=== PATIENT | male | born 1960 ===

== ENCOUNTER 2018-02-25 15:41 | Observation (INO) | payer MEDICAID ==
--- NOTE | 2018-02-25 17:06 | ED PDOC ---
Arrival/HPI - General EM Caveat: Altered Mental Status - History of Present Illness Symptom Onset: Other (unknown) Symptom Course: Unchanged Activities at Onset: Other (brought in by EMS) Context: Street <Phan Yoo - Last Filed: 02/25/18 17:07> - General Historian: EMS <Adriane Booker - Last Filed: 02/25/18 19:45> - General Chief Complaint: Altered Mental Status Time Seen by Provider: 02/25/18 16:05 - History of Present Illness Narrative History of Present Illness (Text): 02/25/18 17:03 Patient is a 57 year old male with unknown PMH who presented to ED via EMS for AMS. Per EMS, he was walking along the highway and appeared confused, out of breath, and overheated. He asked them to take him back to the [place]. On our exam, he stated that he was in [place] and knew who the president was. Otherwise he is disoriented and confused. (Phan Yoo) Past Medical History - Provider Review Nursing Documentation Reviewed: Yes - Past History Past History: Unable to Obtain - Infectious Disease Hx of Infectious Diseases: None - Psychiatric Hx Substance Use: No (Unknown) <Phan Yoo - Last Filed: 02/25/18 17:07> Family/Social History - Physician Review Nursing Documentation Reviewed: Yes Family/Social History: Unknown Family HX Smoking Status: Unknown If Ever Smoked Hx Alcohol Use: No (Unknown) Hx Substance Use: No (Unknown) <Phan Yoo - Last Filed: 02/25/18 17:07> Allergies/Home Meds <Phan Yoo - Last Filed: 02/25/18 17:07> <Adriane Booker - Last Filed: 02/25/18 19:45> Allergies/Adverse Reactions: Allergies Unobtainable Allergy (Verified 02/25/18 16:48) Home Medications: Home Meds Medication Instructions Recorded Confirmed Unobtainable 02/25/18 02/25/18 Review of Systems - Review of Systems Systems not reviewed;Unavailable: Altered Mental Status <Phan Yoo - Last Filed: 02/25/18 17:07> Physical Exam Vital Signs Reviewed: Yes Temperature: Afebrile Blood Pressure: Normal Pulse: Regular Respiratory Rate: Normal Appearance: Positive for: Non-Toxic Pain Distress: None Mental Status: Positive for: Confused Finger Stick Blood Glucose: 112 - Systems Exam Head: Present: Atraumatic, Normocephalic Pupils: Present: PERRL Extroacular Muscles: Present: EOMI Mouth: Present: Dry Pharnyx: Present: Normal. No: ERYTHEMA, EXUDATE Neck: Present: Normal Range of Motion. No: JVD Respiratory/Chest: Present: Clear to Auscultation. No: Wheezes, Rales, Rhonchi Cardiovascular: Present: Regular Rate and Rhythm. No: Murmurs, Rub, Gallop Abdomen: No: Tenderness, Rebound, Guarding Back: Present: Normal Inspection Upper Extremity: Present: Normal Inspection. No: Cyanosis, Edema Lower Extremity: Present: Normal Inspection. No: Edema Neurological: Present: CN II-XII Intact, Motor Func Grossly Intact, Normal Sensory Function Skin: Present: Hot. No: Rashes Psychiatric: Present: Alert <Phan Yoo - Last Filed: 02/25/18 17:07> Vital Signs Temp Pulse Resp BP Pulse Ox 02/25/18 18:00 98.6 F 76 18 145/78 98 02/25/18 16:58 99.2 F 84 16 139/76 99 Medical Decision Making <Phan Yoo - Last Filed: 02/25/18 17:07> - Lab Interpretations I have reviewed the lab results: Yes - RAD Interpretation Customer Services Manager: ED Physician, Radiologist - EKG Interpretation Interpreted by ED Physician: Yes Type: 12 lead EKG <Adriane Booker - Last Filed: 02/25/18 19:45> ED Course and Treatment: 02/25/18 17:10 -Patient confused on exam and not oriented to person, time, place, or situation -CT head, CBC, CMP, UDS, UA, Blood and urine cx's, ammonia levels (Phan Yoo) 02/25/18 Patient Seen With Resident: In agreement with resident note which contains more details about the patient. Patient was seen and evaluated with resident. Came up with plan and treatment together. EKS shows NSR at [address] changes and QTC 475. Interpreted by me. 02/25/18 19:05 Based on the fact that patient appears altered and stated he was from [place]. Called [place] [employer] to alert them that patient is at [facility] in case family reach out to the police. 02/25/18 19:07 Chest X-ray shows no acute processes. Interpreted by me. 02/25/18 19:11 CT Head Without Intravenous Contrast: FINDINGS: Brain: Diffuse cerebral volume loss and chronic microvascular white matter changes. Ventricles: Unremarkable. Bones/joints: Unremarkable. No acute fracture. Soft tissues: Unremarkable. Sinuses: Unremarkable as visualized. Mastoid air cells: Unremarkable as visualized. IMPRESSION: No acute intracranial pathology or traumatic injury. Diffuse cerebral volume loss and chronic microvascular white matter changes. 02/25/18 19:43 Labs WNL. Workup was negative but patient continues to be disoriented. No family can be reached and phone numbers are not functioning. Will need observation for SW evaluation. Accepted by Owen. Resident at baseline 02/25/18 19:45 (Adriane Booker) - Lab Interpretations Lab Results: 02/25/18 17:00 02/25/18 17:00 Lab Results 02/25/18 18:20: Urine Color Yellow, Urine Appearance Clear, Urine pH 5.5, Ur Specific [place] >= 1.030, Urine Protein Trace H, Urine Glucose (UA) Negative, Urine Ketones 15 H, Urine Blood Negative, Urine Nitrate Negative, Urine Bilirubin Small H, Urine Urobilinogen 0.2, Ur Leukocyte Esterase Negative, Urine RBC Negative, Urine WBC 1 - 3, Ur Epithelial Cells 1 - 3, Urine Bacteria Few 02/25/18 17:00: Alcohol, Quantitative < 10 02/25/18 17:00: Sodium 147, Potassium 3.3 L, Chloride 109 H, Carbon Dioxide 24, Anion Gap 17, BUN 24 H, Creatinine 0.8, Est GFR ( Amer) > 60, Est GFR ( Non-Af Amer) > 60, Random Glucose 112 H, Calcium 9.2, Phosphorus 3.4, Magnesium 2.1, Total Bilirubin 0.8, AST 42, ALT 37, Alkaline Phosphatase 73, Total Protein 7.7, Albumin 4.3, Globulin 3.4, Albumin/Globulin Ratio 1.3 02/25/18 17:00: WBC 6.0, RBC 4.34, Hgb 13.2 L, Hct 38.6 L, MCV 88.9, MCH 30.4, MCHC 34.2, RDW 14.0, Plt Count 212, MPV 9.4, Gran % 65.5, Lymph % (Auto) 24.7, [place] % (Auto) 8.6 H, Eos % (Auto) 1.0 L, Baso % (Auto) 0.2, Gran # 3.96, Lymph # (Auto) 1.5, [place] # (Auto) 0.5, Eos # (Auto) 0.1, Baso # (Auto) 0.01 02/25/18 16:57: POC Glucose (mg/dL) 112 H 02/25/18 16:01: POC Glucose (mg/dL) 108 - RAD Interpretation Radiology Orders: 02/25/18 17:02 HEAD W/O CONTRAST [CT] Stat 02/25/18 17:15 CHEST ONE VIEW [RAD] Stat <Phan Yoo - Last Filed: 02/25/18 17:07> - Scribe Statement The provider has reviewed the documentation as recorded by the Scribe <Adriane Booker - Last Filed: 02/25/18 19:45> - Scribe Statement Zane Prather Provider Scribe Attestation: All medical record entries made by the Scribe were at my direction and personally dictated by me. I have reviewed the chart and agree that the record accurately reflects my personal performance of the history, physical exam, medical decision making, and the department course for this patient. I have also personally directed, reviewed, and agree with the discharge instructions and disposition. (Adriane Booker) Disposition/Present on Arrival - Present on Arrival History of DVT/PE: No History of Uncontrolled Diabetes: No Urinary Catheter: No History of Decub. Ulcer: No History Surgical Site Infection Following: None <Phan Yoo - Last Filed: 02/25/18 17:07> - Present on Arrival Any Indicators Present on Arrival: No - Disposition Have Diagnosis and Disposition been Completed?: Yes Disposition Time: 19:44 Patient Plan: Observation <Adriane Booker - Last Filed: 02/25/18 19:45> - Disposition Diagnosis: Dementia, Disoriented Disposition: HOSPITALIZED Condition: FAIR Referrals: PCP,NO [Primary Care Provider] - Follow up with primary Forms: [employer] (Slovenian)
[2018-02-25 17:57] LABS: BASO # 0.01 K/mm3 (0.0-2.0); BASO % 0.2 % (0.0-3.0); EOS # 0.1 (0.0-0.7); GRAN # 3.96 (1.4-6.5); GRAN % 65.5 % (50.0-68.0); HEMOGLOBIN 13.2 g/dL (14.0-18.0); LYMPH # 1.5 (1.2-3.4); LYMPH % 24.7 % (22.0-35.0); MEAN CELL VOLUME 88.9 fl (80.0-105.0); MEAN CORPUSCULAR HEMOGLOBIN 30.4 pg (25.0-35.0); MEAN CORPUSCULAR HGB CONC 34.2 g/dl (31.0-37.0); MEAN PLATELET VOLUME 9.4 fl (7.0-11.0); MONO # 0.5 (0.1-0.6); MONO % 8.6 % (1.0-6.0); RBC 4.34 10^6/uL (3.5-6.1)
[2018-02-25 18:04] LABS: ALB/GLOB RATIO 1.3 (1.1-1.8); ALBUMIN 4.3 g/dL (3.0-4.8); ALT/SGPT 37 U/L (7-56); AST/SGOT 42 U/L (17-59); BLOOD UREA NITROGEN 24 mg/dL (7-21); CALCIUM 9.2 mg/dL (8.4-10.5); GFR AFRICAN-AMERICAN > 60; GFR NON-AFRICAN AMERICAN > 60
[2018-02-25 18:42] LABS: PH,URINE 5.5 (4.7-8.0); URINE BILIRUBIN SMALL (NEGATIVE); URINE BLOOD NEGATIVE (NEGATIVE); URINE GLUCOSE (UA) NEGATIVE (NEGATIVE); URINE LEUKOCYTE ESTERASE NEGATIVE Leu/uL (NEGATIVE); URINE PROTEIN TRACE mg/dL (<30 mg/dL); URINE UROBILINOGEN 0.2 E.U./dL (<1 E.U./dL)
[2018-02-25 18:43] LABS: URINE APPEARANCE CLEAR (CLEAR); URINE COLOR YELLOW (YELLOW)
[2018-02-25 19:10] LABS: URINE BACTERIA FEW (NEG); URINE RBC NEGATIVE /hpf (0-2)
[2018-02-25] MEDS ORDERED: Multivitamin (MVI) 10 ML, Thiamine 100 MG, Folic Acid 1 MG in Sodium Chloride 0.9% 1,00... IV ONE (21:01)
[2018-02-25] MEDS ORDERED: Potassium Chloride 20 mEq ER Tab PO STA (22:34)
--- NOTE | 2018-02-25 23:43 | CP.PCM.HP ---
<AramSai - Last Filed: 02/25/18 23:25> History of Present Illness - History of Present Illness History of Present Illness: Internal Medicine H&P CC: Dementia HPI: Mr. Eliel Cai is a 57 year old man with a past medical history significant for dementia and prior significant alcohol abuse who presented after being found by police wandering the streets of [facility]. Patient is only alert to self and disoriented to place, time and event. Per patients family at bedside, patient lives alone in [place] and was last seen yesterday evening when he was reportedly going back to his home. Patients family filed missing persons report with [facility] this morning. It is also reported that the patient is no longer able to live alone and they are concerned for his safety. Patient has no complaints at this time including fevers, chills, headache, chest pain, SOB, abdominal pain, N/V/D/C, changes in urine output, skin changes or any numbness/tingling/weakness of any extremity. PMH: As stated above PSH: As stated above Family History: Denies Social History: Previous tobacco use (unknown quantity), previous significant alcohol abuse and denies illicit drug abuse Allergies: NKDA Home Medications: As per MAR Present on Admission - Present on Admission Any Indicators Present on Admission: No Review of Systems - Review of Systems Review of Systems: As stated in HPI, otherwise negative Past Patient History - Infectious Disease Hx of Infectious Diseases: None - Past Social History Smoking Status: Unknown If Ever Smoked - PSYCHIATRIC Hx Substance Use: No (Unknown) - SURGICAL HISTORY Hx Surgeries: No (Unknown) Meds Allergies/Adverse Reactions: Allergies Allergy/AdvReac Type Severity Reaction Status Date / Time Unobtainable Allergy Verified 02/25/18 16:48 Physical Exam - Constitutional Appears: Non-toxic, No Acute Distress - Head Exam Head Exam: ATRAUMATIC, NORMOCEPHALIC - Eye Exam Eye Exam: EOMI, Normal appearance - ENT Exam ENT Exam: Mucous Membranes Moist, Normal Exam - Neck Exam Neck exam: Positive for: Full Rom, Normal Inspection. Negative for: Lymphadenopathy, Tenderness - Respiratory Exam Respiratory Exam: Clear to Auscultation Bilateral, NORMAL BREATHING PATTERN. absent: Accessory Muscle Use, Chest Wall Tenderness, Decreased Breath Sounds, Prolonged Expiratory Phase, Rales, Rhonchi, Wheezes, Respiratory Distress, Stridor - Cardiovascular Exam Cardiovascular Exam: REGULAR RHYTHM, RRR, +S1, +S2. absent: Bradycardia, Tachycardia, Clicks, Diastolic murmur, Gallop, Irregular Rhythm, JVD, Rubs, +S4 , Systolic Murmur - GI/Abdominal Exam GI & Abdominal Exam: Normal Bowel Sounds, Soft. absent: Tenderness - Extremities Exam Extremities exam: Positive for: full ROM, normal capillary refill, normal inspection, pedal pulses present. Negative for: calf tenderness, joint swelling , pedal edema, tenderness - Back Exam Back exam: FULL ROM, NORMAL INSPECTION. absent: CVA tenderness (L), CVA tenderness (R) - Neurological Exam Neurological exam: Alert, CN II-XII Intact, Normal Gait - Psychiatric Exam Psychiatric exam: Normal Affect, Normal Mood - Skin Skin Exam: Dry, Intact, Normal Color, Warm Results - Vital Signs Recent Vital Signs: Last Vital Signs Temp 98.6 F 02/25/18 18:00 Pulse 71 02/25/18 20:55 Resp 17 02/25/18 20:55 BP 131/71 02/25/18 20:55 Pulse Ox 100 02/25/18 20:55 - Labs Result Diagrams: 02/25/18 17:00 02/25/18 17:00 Labs: Laboratory Results - last 24 hr 02/25/18 21:38 Ammonia 14 Assessment & Plan - Assessment and Plan (Free Text) Assessment: 57 year old man with a past medical history significant for dementia and prior significant alcohol abuse who presented after being found by police wandering the streets of [facility]. Patient is only alert to self and disoriented to place, time and event. Per patients family at bedside, patient lives alone in [place] and was last seen yesterday evening when he was reportedly going back to his home. Patients family filed missing persons report with [place] PD this morning. It is also reported that the patient is no longer able to live alone and they are concerned for his safety. Plan: 1. Dementia -CT Head negative for any acute intracranial abnormalities -Chest X-Ray showed no active disease -EKG showed NSR without any ST/T segment changes -Alcohol negative and UDS pending -UA without signs of UTI -HDS/VSS -Patient refused IV Banana Bag -Daily Folic Acid and Thiamine -Psych, Social Work, PT/OT consulted, all recommendations appreciated 2. Hypokalemia -Potassium at 3.3 -Replenished with 40meq of Potassium Chloride solution -Will monitor with AM CMP GI Prophylaxis: Protonix DVT Prophylaxis: SCD's Diet: Heart Healthy Patient seen and case discussed with attending, Dr. Ghulam Peñaloza PGY2 - Date & Time Date: 02/25/18 Time: 23:44 <Ghulam Eaton N - Last Filed: 02/26/18 00:10> Results - Vital Signs Recent Vital Signs: Last Vital Signs Temp 98.6 F 02/25/18 18:00 Pulse 71 02/25/18 20:55 Resp 17 02/25/18 20:55 BP 131/71 02/25/18 20:55 Pulse Ox 100 02/25/18 20:55 - Labs Result Diagrams: 02/25/18 17:00 02/25/18 17:00 Labs: Laboratory Results - last 24 hr 02/25/18 21:38 Ammonia 14 Addendum Addendum: 02/26/18 00:05 57 yrs old male unable to communicate due to cognitive impairment was brought to er for wandering in the street. family arived later , as per family pt was dx ed with dementia 2 months back in [facility]. but wer having symptoms of disorientation off and on x1 yr. he lives in a rented room in some house .but now he is unable to live by himself.
[2018-02-26 01:10] LABS: T4 6.5 ug/dL (5.5-11.0)
[2018-02-26] MEDS ORDERED: Potassium Chloride 20 mEq ER Tab PO STA (05:13)
[2018-02-26] MEDS: Pantoprazole 40 mg EC Tab PO SCH (05:25)
[2018-02-26 06:53] LABS: BASO # 0.03 K/mm3 (0.0-2.0); BASO % 0.6 % (0.0-3.0); EOS # 0.3 (0.0-0.7); GRAN # 2.27 (1.4-6.5); GRAN % 45.6 % (50.0-68.0); LYMPH % 39.4 % (22.0-35.0); MEAN CELL VOLUME 88.7 fl (80.0-105.0); MEAN CORPUSCULAR HGB CONC 33.8 g/dl (31.0-37.0); MEAN PLATELET VOLUME 9.4 fl (7.0-11.0); MONO # 0.5 (0.1-0.6); MONO % 9.4 % (1.0-6.0); RBC 4.34 10^6/uL (3.5-6.1)
[2018-02-26 07:17] LABS: ALB/GLOB RATIO 1.3 (1.1-1.8); ALT/SGPT 28 U/L (7-56); AST/SGOT 38 U/L (17-59); BLOOD UREA NITROGEN 21 mg/dL (7-21); CALCIUM 9.1 mg/dL (8.4-10.5); GFR AFRICAN-AMERICAN > 60; GFR NON-AFRICAN AMERICAN > 60
--- NOTE | 2018-02-26 07:35 | CT ---
Date of service: 02/25/2018 PROCEDURE: CT HEAD WITHOUT CONTRAST. HISTORY: AMS COMPARISON: None available. TECHNIQUE: Axial computed tomography images were obtained through the head/brain without intravenous contrast. Radiation dose: Total exam DLP = 824 mGy-cm. This CT exam was performed using one or more of the following dose reduction techniques: Automated exposure control, adjustment of the mA and/or kV according to patient size, and/or use of iterative reconstruction technique. FINDINGS: HEMORRHAGE: No intracranial hemorrhage. BRAIN: No mass effect or edema. Severe diffuse microvascular changes in the periventricular and deep white matter VENTRICLES: Unremarkable. No hydrocephalus. CALVARIUM: Unremarkable. PARANASAL SINUSES: Unremarkable as visualized. No significant inflammatory changes. MASTOID AIR CELLS: Unremarkable as visualized. No inflammatory changes. OTHER FINDINGS: The report concurs with the preliminary [facility] report IMPRESSION: No acute intracranial findings. Severe chronic microvascular changes
[2018-02-26 07:53] VITALS: O2SAT 98
--- NOTE | 2018-02-26 08:19 | RAD ---
Date of service: 02/25/2018 PROCEDURE: CHEST RADIOGRAPH, 1 VIEW HISTORY: altered COMPARISON: None available. FINDINGS: LUNGS: The lungs are well inflated and clear. PLEURA: No pneumothorax or pleural fluid seen. CARDIOVASCULAR: Normal. OSSEOUS STRUCTURES: No significant abnormalities. VISUALIZED UPPER ABDOMEN: Normal. OTHER FINDINGS: None. IMPRESSION: No active pulmonary disease.
--- NOTE | 2018-02-26 14:33 | CP.PCM.PN ---
<Mar Heaton - Last Filed: 02/26/18 14:29> Subjective - Date & Time of Evaluation Date of Evaluation: 02/26/18 Time of Evaluation: 14:29 - Subjective Subjective: Mar Heaton PGY1 Progress Note for Dr. Meyer Mr. Julian was examined at bedside this morning. He has no complaints today. He does not know why he is here, or where he is. He is not able to report any medical history. He denies dizziness, headache, shortness of breath, chest pain , abdominal pain, nausea, vomiting, or diarrhea. Patient's family arrived today. They reported that he lives in a house with his brother, who is currently in the [place]. His sister in law is not able to care for him at this time. They report previous admissions at [facility] His sister was also present who reports she is too sick to take care of him. Objective - Vital Signs/Intake and Output Vital Signs (last 24 hours): Temp Pulse Resp BP Pulse Ox 98 F 67 18 108/68 98 02/26/18 06:00 02/26/18 06:00 02/26/18 06:00 02/26/18 06:00 02/26/18 06:00 - Medications Medications: Current Medications Folic Acid (Folic Acid) 1 mg PO DAILY [facility] Last Admin: 02/26/18 10:02 Dose: 1 mg Multivitamins/Minerals (Therapeutic-M Tab) 1 tab PO 0800 [facility] Pantoprazole Sodium (Protonix Ec Tab) 40 mg PO 0600 [facility] Last Admin: 02/26/18 05:25 Dose: 40 mg Thiamine HCl (Vitamin B1 Tab) 100 mg PO BID [facility] - Labs Labs: 02/26/18 06:10 02/26/18 06:10 - Constitutional Appears: Well, No Acute Distress - Head Exam Head Exam: ATRAUMATIC, NORMOCEPHALIC - Eye Exam Eye Exam: Normal appearance, PERRL - ENT Exam ENT Exam: Mucous Membranes Moist - Respiratory Exam Respiratory Exam: Clear to Ausculation Bilateral, NORMAL BREATHING PATTERN - Cardiovascular Exam Cardiovascular Exam: REGULAR RHYTHM, +S1, +S2 - GI/Abdominal Exam GI & Abdominal Exam: Soft, Normal Bowel Sounds. absent: Distended, Tenderness - Extremities Exam Extremities Exam: Normal Inspection. absent: Pedal Edema, Tenderness - Back Exam Back Exam: NORMAL INSPECTION - Neurological Exam Neurological Exam: Alert, Awake Additional comments: oriented to person, does not know year, president, facility, or city. - Psychiatric Exam Psychiatric exam: Normal Affect, Normal Mood - Skin Skin Exam: Normal Color Assessment and Plan - Assessment and Plan (Free Text) Assessment: 57 year old man with a past medical history significant for dementia and prior significant alcohol abuse who presented after being found by police wandering the streets of [facility], admitted for dementia. Plan: Dementia - likely secondary to chronic alcohol use - CT Head negative for any acute intracranial abnormalities - Chest X-Ray showed no active disease - EKG showed NSR without any ST/T segment changes - Alcohol negative and UDS pending - UA without signs of UTI - vital signs stable - Daily Folic Acid and multivitamin - Thiamine BID - Psych, Social Work, PT/OT consulted, all recommendations appreciated - spoke with family, they are not able to bring him home at this time Hypokalemia - Potassium at 3.8 today, resolved - 3.3 yesterday, replenished with 40meq of Potassium Chloride solution - Will monitor with AM CMP GI Prophylaxis: Protonix DVT Prophylaxis: SCD's Diet: Heart Healthy Patient seen and case discussed with attending, Dr. Meyer <Pradeep Meyer - Last Filed: 02/28/18 11:50> Objective - Vital Signs/Intake and Output Vital Signs (last 24 hours): Temp Pulse Resp BP Pulse Ox 97.8 F 69 20 129/83 98 02/27/18 14:00 02/27/18 14:00 02/27/18 14:00 02/27/18 14:00 02/27/18 14:00 - Labs Labs: 02/26/18 06:10 02/26/18 06:10 PT 12.5 SECONDS (9.4-12.5) 02/27/18 11:35 INR 1.09 02/27/18 11:35 Attending/Attestation - Attestation I have personally seen and examined this patient.: Yes I have fully participated in the care of the patient.: Yes I have reviewed all pertinent clinical information, including history, physical exam and plan: Yes Notes (Text): 02/28/18 11:49 Attending note; Patient seen and examined with resident. Patient is a 57 year old man with a past medical history significant for dementia and prior significant alcohol abuse who presented after being found by police wandering the streets of [facility], admitted for dementia. Patient is currently alert and awake. Oriented to place. knows date of . Recognizes his family members. Otherwise memory is poor. No acute medical issues. Psychiatric evaluation requested for occasional agitation. Get neurology evaluation. Case discussed with upper caser/social insurance administrator in detail for discharge planning. Possible discharge tomorrow. Upon discharge the patient will be referred to [facility] clinic.
--- NOTE | 2018-02-26 15:13 | CARD ---
APPROVED REPORT Date of service: 02/25/2018 EKG Measurement Heart [id number] <Conclusion> Normal sinus rhythm Nonspecific T wave abnormality Prolonged QT Abnormal ECG
[2018-02-27] MEDS: Pantoprazole 40 mg EC Tab PO SCH (05:30)
[2018-02-27 07:57] LABS: BARBITURATES, UR NEGATIVE (NEGATIVE); BENZODIAZEPINES, UR NEGATIVE (NEGATIVE); OPIATES, UR NEGATIVE (NEGATIVE); PHENCYCLIDINE, UR NEGATIVE (NEGATIVE)
[2018-02-27] MEDS ORDERED: Multivitamin With Minerals Tab PO SCH (08:00)
--- NOTE | 2018-02-27 08:14 | CON ---
Copied To: Jennifer Neal MD Attending MD: Jennifer Neal MD DATE: 02/26/2018 HISTORY OF PRESENT ILLNESS: The patient is a 57-year-old Croatian male with a history of dementia and prior alcohol abuse, who was brought in by family as they have concerns about the patient cannot live by himself. Apparently, the patient has been found wandering alone on the street, unable to turn calm two days in a row. This has necessitated his family filing missing a person report recently. Psychiatry was consulted due to history of dementia and altered mental status. I reviewed the recent notes and met with the patient at bedside. Apparently, the patient is only Croatian speaking, I advised translation from Croatian speaking personnel, Herbert to help me comprehensively interview the patient at bedside today. The patient is cooperative and pleasant and responsive during the course of our interview. The patient reports that he is feeling well and that he is aware that he is at a hospital, but he was not aware of the name of the hospital. The patient did not know the current month and he believes that the year to be 2011. The patient denies having any prior psychiatric history, whether it be inpatient suicide attempts or issues of perceptual disturbance. He believes that he is hospitalized because he has a cold and when he is apprised of the fact that his family is worried about his recent history of getting lost on the street, he readily admitted that he goes to the park or walking around the block and get lost the way back. However, the patient's responses are vague and they appeared to be more agreeable than historical. The patient does not appear to be responding to internal stimuli and if there are lapses in the patient's memory when we discussed the recent events. He has generally been in good control on the unit. There have been no behavioral issues. Behavioral issues were not noted in admission somewhere either. He is confused that has been noted multiple times and this is consistent with his diagnosis of Alzheimer's. His insight and judgement are considered to be poor at this time. PSYCHIATRIC HISTORY: As noted above, the patient denies having any psychiatric history and in review of medical records did not show any consultations or prior psychiatric inpatient stay. He denies any history of suicide attempts or psychiatric medications. The patient also denies any history of outpatient treatment. SOCIAL HISTORY: The patient reports that he was born in [place]. The patient reports that he is and that he lives with his , Gladys . It is unclear if this is true or not, though ER records indicate that family is concerned that he cannot live by himself anymore, so it appears that the patient actually lives by himself. The patient reports that he has a daughter, who is 12 years old. He reports that he works; but however, cannot answer any questions about his current employment. He denies any current drug or alcohol issues; however, does readily admits that he had an alcohol problem many years ago. CURRENT RELEVANT PSYCHIATRIC MEDICATIONS: The patient is not on any psychiatric medications at this time in the unit. Labs and vital signs are reviewed by this provider. IMPRESSION: Dementia with behavioral disturbance. RECOMMENDATIONS: The patient is suffering from Alzheimer dementia and likely needs termite exterminator placement and monitoring if he is agreeable. If he is not agreeable, family should discuss POA/legal guardian option as this will be the most safe disposition at this time. The patient is clearly confused and cannot care for himself any longer. The patient does not meet criteria for psychiatric inpatient hospitalization. He does not show any psychotic symptoms or behavioral issues. He is confused, forgetful, and this is very consistent with Alzheimer dementia. The patient requires to be continued monitoring in inpatient setting for this medical issue until proper disposition is in place. Psychiatry will sign off at this time. Consult p.r.n. if there are any acute changes in the patient's presentation. Jennifer Neal MD
--- NOTE | 2018-02-27 08:56 | CP.PCM.CON ---
History of Present Illness - History of Present Illness History of Present Illness: Zane Sanchez PGY2 Neurology Consult Note for Dr. Cameron Mr. Eliel Cai is a 57-year-old male with a PMH of dementia and significant prior EtOH abuse who was brought in via EMS after being found walking around the street confused. Of note, the patient was seen in [facility] ED in 01/09/18 for worsening confusion; patient was medically and psychiatrically evaluated and cleared for discharge as he's not a candidate for involuntary admission. During this current visit, per ED note, the family reported that the patient lives alone, and that he has been found on multiple occasions to be wandering alone in the streets unable to find his way home; they report he cannot live alone due to his advancing dementia but do not know where else he can live. CT head was done and showed no acute intracranial pathology or traumatic injury, positive for diffuse cerebral volume loss and chronic microvascular white matter changes. Neurology is consulted for dementia. When patient is evaluated, he is alert but oriented only to self. Translation and assistance was provided by a patient day care attendant. He states that it is 2005, does not know where he is, and cannot recall his date of . He states that he lives with his (Gladys) and denies having children. He is noted to be requiring full assistance in his eating and ambulation, which according to nursing staff he walks with a limp. The patient seems very confused and is slow to respond, doesn't make eye contact and does not answer questions fully. He's unable to answer complex questions but does follow simple commands. Mini cog test was performed and patient was unable to recall any of the words and could not draw the normal clock. Patient denies drinking alcohol, or any other drugs, and does not state any prior medical history. ROS was attempted, however, was not obtained due to AMS. PMH: advancing dementia, EtOH (unknown amount) PSH: could not be obtained Meds: could not be obtained Allergies: NKDA SHx: Previous tobacco use (unknown quantity), previous significant alcohol abuse and denies illicit drug abuse FHx: could not be obtained Review of Systems - Review of Systems Systems not reviewed;Unavailable: Altered Mental Status Past Patient History - Infectious Disease Hx of Infectious Diseases: None - Past Medical History & Family History Past Medical History?: Yes Past Family History: Reviewed and not pertinent - Past Social History Smoking Status: Former Smoker Alcohol: Other (significant history; unknown at this time) Drugs: Denies Home Situation {Lives}: Alone - CARDIAC Hx Cardiac Disorders: No Hx Hypertension: No - PULMONARY Hx Respiratory Disorders: No Other/Comment: smoker - NEUROLOGICAL HX Cerebrovascular Accident: No Hx Seizures: No - HEENT Hx HEENT Problems: No - RENAL Hx Chronic Kidney Disease: No - ENDOCRINE/METABOLIC Hx Endocrine Disorders: No - HEMATOLOGICAL/ONCOLOGICAL Hx Cancer: No Hx Human Immunodeficiency Virus (HIV): No - INTEGUMENTARY Hx Dermatological Problems: No - MUSCULOSKELETAL/RHEUMATOLOGICAL Hx Musculoskeletal Disorders: No Hx Falls: No - GASTROINTESTINAL Hx Gastrointestinal Disorders: No - GENITOURINARY/GYNECOLOGICAL Hx Sexually Transmitted Disorders: No - PSYCHIATRIC Hx Psychophysiologic Disorder: No Hx Substance Use: No (Unknown) - SURGICAL HISTORY Hx Surgeries: No (Unknown) - ANESTHESIA Hx Anesthesia: No Meds Allergies/Adverse Reactions: Allergies Allergy/AdvReac Type Severity Reaction Status Date / Time No Known Allergies Allergy Verified 09/08/17 16:31 - Medications Medications: Current Medications Folic Acid (Folic Acid) 1 mg PO DAILY [facility] Last Admin: 02/26/18 10:02 Dose: 1 mg Lorazepam (Ativan) 1 mg IVP Q6H PRN; Protocol PRN Reason: Anxiety Last Admin: 02/27/18 05:42 Dose: 1 mg Multivitamins/Minerals (Therapeutic-M Tab) 1 tab PO 0800 AZALIA Pantoprazole Sodium (Protonix Ec Tab) 40 mg PO 0600 AZALIA Last Admin: 02/27/18 05:30 Dose: 40 mg Quetiapine Fumarate (Seroquel) 25 mg PO HS AZALIA PRN Reason: Protocol Last Admin: 02/27/18 00:36 Dose: Not Given Thiamine HCl (Vitamin B1 Tab) 100 mg PO BID AZALIA Ziprasidone (Geodon Inj) 10 mg IM Q8H PRN; Protocol PRN Reason: Agitation Last Admin: 02/26/18 16:51 Dose: 10 mg Physical Exam - Constitutional Appears: No Acute Distress, Unkempt, Confused - Head Exam Head Exam: ATRAUMATIC, NORMAL INSPECTION - Eye Exam Eye Exam: Normal appearance, PERRL - ENT Exam ENT Exam: Mucous Membranes Moist - Neck Exam Neck exam: Positive for: Normal Inspection. Negative for: Meningismus - Respiratory Exam Respiratory Exam: NORMAL BREATHING PATTERN. absent: Rales, Rhonchi, Wheezes - Cardiovascular Exam Cardiovascular Exam: RRR, +S1, +S2 - GI/Abdominal Exam GI & Abdominal Exam: Normal Bowel Sounds, Soft. absent: Distended, Tenderness - Extremities Exam Extremities exam: Positive for: full ROM, normal inspection. Negative for: pedal edema - Back Exam Back exam: NORMAL INSPECTION - Neurological Exam Neurological exam: Alert, CN II-XII Intact Additional comments: Mini-Cog test score: 0 Palmomental reflexes were positive - Expanded Neurological Exam Expanded Neurological exam: Inattentive, Memory Loss-Recent Event, Memory Loss-Remote Event, Tremor (none noted at rest) Cranial nerves: Tongue Deviation: Normal Ataxia: No (wide based gait w/ limp) Neuro motor strength exam: Left Upper Extremity: 5, Right Upper Extremity: 5, Left Lower Extremity: 5, Right Lower Extremity: 5 - Psychiatric Exam Psychiatric exam: Flat Affect - Skin Skin Exam: Normal Color, Warm Results - Vital Signs Recent Vital Signs: Last Vital Signs Temp 97.6 F 02/27/18 06:00 Pulse 67 02/27/18 06:00 Resp 18 02/27/18 06:00 BP 128/85 02/27/18 06:00 Pulse Ox 98 02/27/18 06:00 - Labs Result Diagrams: 02/26/18 06:10 02/26/18 06:10 Labs: Laboratory Results - last 24 hr 02/27/18 06:43 Urine Opiates Screen Negative Urine Methadone Screen Negative Ur Barbiturates Screen Negative Ur Phencyclidine Scrn Negative Ur Amphetamines Screen Negative U Benzodiazepines Scrn Negative U Oth Cocaine Metabols Negative U Cannabinoids Screen Negative Assessment & Plan - Assessment and Plan (Free Text) Assessment: 57-year-old male with a PMH of dementia and significant prior EtOH abuse who was brought in via EMS after being found walking around the street confused. Moderate Alzheimer's Dementia is likely etiology given the patient's timeline of symptoms and poor performance on mini-cog. Infectious and metabolic causes also need to be ruled out, so B12 and Thyroid studies will be repeated. Given that there are no noted tremors or drastic neuro history or symptoms at this time, parkinson's or frontotemporal dementia is unlikely. Plan: Alzheimer's dementia - repeat EKG due to prolonged QTc - start Aricept 10mg HS - will give B12 1000mcg inj x1 - started on Seroquel and Geodon PRN by psych - psych eval appreciated - continue to reorient patient - PT/OT - SW is working with family regarding insurance issues for patient placement - POA should also be assigned for future decisions - moderate fall risk - cont 1:1 observer for safety - Patient can be safely discharged on Aricept, w/ close outpatient neurological follow-up - further recs per Dr. Cameron Case was reviewed and discussed with attending, Dr. Cameron
[2018-02-27 11:51] LABS: INR 1.09; PROTHROMBIN TIME 12.5 SECONDS (9.4-12.5)
[2018-02-27 12:11] LABS: FREE T4 0.93 ng/dL (0.78-2.19)
--- NOTE | 2018-02-27 13:34 | CP.PCM.DIS ---
<Mar Heaton - Last Filed: 02/27/18 13:47> Provider - Provider Date of Admission: 02/25/18 19:41 Attending physician: Pradeep Meyer MD Primary care physician: NO PRIMARY CARE PROVIDER Consults: Neurology Psychiatry Time Spent in preparation of Discharge (in minutes): 70 Hospital Course - Lab Results Lab Results: Most Recent Lab Values WBC 5.0 10^3/ul (4.5-11.0) 02/26/18 06:10 RBC 4.34 10^6/uL (3.5-6.1) 02/26/18 06:10 Hgb 13.0 g/dL (14.0-18.0) L 02/26/18 06:10 Hct 38.5 % (42.0-52.0) L 02/26/18 06:10 MCV 88.7 fl (80.0-105.0) 02/26/18 06:10 MCH 30.0 pg (25.0-35.0) 02/26/18 06:10 MCHC 33.8 g/dl (31.0-37.0) 02/26/18 06:10 RDW 14.0 % (11.5-14.5) 02/26/18 06:10 Plt Count 201 10^3/uL (120.0-450.0) 02/26/18 06:10 MPV 9.4 fl (7.0-11.0) 02/26/18 06:10 Gran % 45.6 % (50.0-68.0) L 02/26/18 06:10 Lymph % (Auto) 39.4 % (22.0-35.0) H 02/26/18 06:10 Todd % (Auto) 9.4 % (1.0-6.0) H 02/26/18 06:10 Eos % (Auto) 5.0 % (1.5-5.0) 02/26/18 06:10 Baso % (Auto) 0.6 % (0.0-3.0) 02/26/18 06:10 Gran # 2.27 (1.4-6.5) 02/26/18 06:10 Lymph # (Auto) 2.0 (1.2-3.4) 02/26/18 06:10 Todd # (Auto) 0.5 (0.1-0.6) 02/26/18 06:10 Eos # (Auto) 0.3 (0.0-0.7) 02/26/18 06:10 Baso # (Auto) 0.03 K/mm3 (0.0-2.0) 02/26/18 06:10 PT 12.5 SECONDS (9.4-12.5) 02/27/18 11:35 INR 1.09 02/27/18 11:35 Sodium 144 mmol/L (132-148) 02/26/18 06:10 Potassium 3.8 mmol/L (3.6-5.0) 02/26/18 06:10 Chloride 106 mmol/L (98-107) 02/26/18 06:10 Carbon Dioxide 29 mmol/L (21-33) 02/26/18 06:10 Anion Gap 13 (10-20) 02/26/18 06:10 BUN 21 mg/dL (7-21) 02/26/18 06:10 Creatinine 0.8 mg/dl (0.8-1.5) 02/26/18 06:10 Est GFR ( Amer) > 60 02/26/18 06:10 Est GFR (Non-Af Amer) > 60 02/26/18 06:10 POC Glucose (mg/dL) 112 mg/dL (65-110) H 02/25/18 16:57 Random Glucose 124 mg/dL (70-110) H 02/26/18 06:10 Calcium 9.1 mg/dL (8.4-10.5) 02/26/18 06:10 Phosphorus 3.4 mg/dL (2.5-4.5) 02/25/18 17:00 Magnesium 2.1 mg/dL (1.7-2.2) 02/25/18 17:00 Total Bilirubin 0.5 mg/dL (0.2-1.3) 02/26/18 06:10 AST 38 U/L (17-59) 02/26/18 06:10 ALT 28 U/L (7-56) 02/26/18 06:10 Alkaline Phosphatase 64 U/L (38-126) 02/26/18 06:10 Ammonia 14 umol/L (9-33) 02/25/18 21:38 Total Protein 7.1 g/dL (5.8-8.3) 02/26/18 06:10 Albumin 4.0 g/dL (3.0-4.8) 02/26/18 06:10 Globulin 3.1 gm/dL 02/26/18 06:10 Albumin/Globulin Ratio 1.3 (1.1-1.8) 02/26/18 06:10 Vitamin B12 237 pg/mL (239-931) L 02/25/18 17:00 Free T4 0.93 ng/dL (0.78-2.19) 02/27/18 11:35 Thyroxine (T4) 6.5 ug/dL (5.5-11.0) 02/25/18 17:00 TSH 3rd Generation 1.46 mIU/mL (0.46-4.68) 02/27/18 11:35 Urine Color Yellow (YELLOW) 02/25/18 18:20 Urine Appearance Clear (CLEAR) 02/25/18 18:20 Urine pH 5.5 (4.7-8.0) 02/25/18 18:20 Ur Specific Chester >= 1.030 (1.005-1.035) 02/25/18 18:20 Urine Protein Trace mg/dL (<30 mg/dL) H 02/25/18 18:20 Urine Glucose (UA) Negative mg/dL (NEGATIVE) 02/25/18 18:20 Urine Ketones 15 mg/dL (NEGATIVE) H 02/25/18 18:20 Urine Blood Negative (NEGATIVE) 02/25/18 18:20 Urine Nitrate Negative (NEGATIVE) 02/25/18 18:20 Urine Bilirubin Small (NEGATIVE) H 02/25/18 18:20 Urine Urobilinogen 0.2 E.U./dL (<1 E.U./dL) 02/25/18 18:20 Ur Leukocyte Esterase Negative Nancy/uL (NEGATIVE) 02/25/18 18:20 Urine RBC Negative /hpf (0-2) 02/25/18 18:20 Urine WBC 1 - 3 /hpf (0-6) 02/25/18 18:20 Ur Epithelial Cells 1 - 3 /hpf (0-5) 02/25/18 18:20 Urine Bacteria Few (NEG) 02/25/18 18:20 Urine Opiates Screen Negative (NEGATIVE) 02/27/18 06:43 Urine Methadone Screen Negative (NEGATIVE) 02/27/18 06:43 Ur Barbiturates Screen Negative (NEGATIVE) 02/27/18 06:43 Ur Phencyclidine Scrn Negative (NEGATIVE) 02/27/18 06:43 Ur Amphetamines Screen Negative (NEGATIVE) 02/27/18 06:43 U Benzodiazepines Scrn Negative (NEGATIVE) 02/27/18 06:43 U Oth Cocaine Metabols Negative (NEGATIVE) 02/27/18 06:43 U Cannabinoids Screen Negative (NEGATIVE) 02/27/18 06:43 Alcohol, Quantitative < 10 mg/dL (0-10) 02/25/18 17:00 RPR Nonreactive (NONREACTIVE) 02/25/18 17:00 - Hospital Course Hospital Course: Mr. Eliel Cai is a 57 year old man with a past medical history significant for dementia and prior significant alcohol abuse who presented after being found by police wandering the streets of [facility] ([facility] Patient had no complaints at this time including fevers, chills, headache, chest pain, SOB, abdominal pain, N/V/D/C, changes in urine output, skin changes or any numbness/ tingling/weakness of any extremity. In the ED, labs showed K+ at 3.3. EKG showed NSR. CXR was unremarkable. Head CT showed severe chronic microvascular changes. Patient was given potassium, vitamin b12, thiamine, and folate. Patient was admitted for dementia likely secondary to alcohol use. Upon admission, patient was AAO x1. He had no complaints. Overnight, he reportedly was walking out of his room, acting anxiously and refusing medication. He was given ativan 1mg x2, geodon, and seroquel. Psychiatry was consulted and recommended POA or monitoring in an inpatient facility. Neurology was consulted and recommended aricept and seroquel upon discharge. Patient's family was present upon discharge and a POA was signed by his sister. She agreed to watch and care for the patient. Instructions for newly prescribed medications and follow up appointments were given. Discharge Exam - Head Exam Head Exam: ATRAUMATIC, NORMAL INSPECTION - Eye Exam Eye Exam: EOMI, PERRL Pupil Exam: NORMAL ACCOMODATION - ENT Exam ENT Exam: Mucous Membranes Moist - Respiratory Exam Respiratory Exam: Clear to PA & Lateral, NORMAL BREATHING PATTERN - Cardiovascular Exam Cardiovascular Exam: REGULAR RHYTHM, +S1, +S2 - GI/Abdominal Exam GI & Abdominal Exam: Normal Bowel Sounds, Soft. absent: Tenderness - Extremities Exam Extremities exam: full ROM, normal inspection - Back Exam Back exam: NORMAL INSPECTION - Neurological Exam Neurological exam: Alert Additional comments: oriented to person, not place or time - Psychiatric Exam Psychiatric exam: Normal Affect, Normal Mood Discharge Plan - Discharge Medications Prescriptions: Donepezil [Aricept] 10 mg PO HS 30 Days #30 tab Folic Acid 1 mg PO DAILY 30 Days #30 tab QUEtiapine [Seroquel] 25 mg PO HS PRN 30 Days #30 tab PRN Reason: agitation/psychosis - Follow Up Plan Condition: FAIR Disposition: HOME/ ROUTINE Instructions: Alcohol Use - When Is Drinking a Problem?, Dangers of Secondhand Smoke, Preventing Falls in the Older Adult, Dementia (DC), Effects of Alcohol on Your Health Additional Instructions: Please follow up with primary care at the [facility] on March 06 at 4:30pm. Please follow up with neurology with Dr. Cameron. To make an appointment, please call . Please take newly prescribed medications as follows: Folic acid daily. Donepezil daily. Seroquel nightly. Please return to the Emergency Department if symptoms return. Referrals: PCP,TANK [Primary Care Provider] - Zheng Cameron MD [Staff Provider] - <Pradeep Meyer - Last Filed: 02/28/18 11:54> Provider - Provider Date of Admission: 02/25/18 19:41 Attending physician: Pradeep Meyer MD Primary care physician: TANK PRIMARY CARE PROVIDER Hospital Course - Lab Results Lab Results: Most Recent Lab Values WBC 5.0 10^3/ul (4.5-11.0) 02/26/18 06:10 RBC 4.34 10^6/uL (3.5-6.1) 02/26/18 06:10 Hgb 13.0 g/dL (14.0-18.0) L 02/26/18 06:10 Hct 38.5 % (42.0-52.0) L 02/26/18 06:10 MCV 88.7 fl (80.0-105.0) 02/26/18 06:10 MCH 30.0 pg (25.0-35.0) 02/26/18 06:10 MCHC 33.8 g/dl (31.0-37.0) 02/26/18 06:10 RDW 14.0 % (11.5-14.5) 02/26/18 06:10 Plt Count 201 10^3/uL (120.0-450.0) 02/26/18 06:10 MPV 9.4 fl (7.0-11.0) 02/26/18 06:10 Gran % 45.6 % (50.0-68.0) L 02/26/18 06:10 Lymph % (Auto) 39.4 % (22.0-35.0) H 02/26/18 06:10 Todd % (Auto) 9.4 % (1.0-6.0) H 02/26/18 06:10 Eos % (Auto) 5.0 % (1.5-5.0) 02/26/18 06:10 Baso % (Auto) 0.6 % (0.0-3.0) 02/26/18 06:10 Gran # 2.27 (1.4-6.5) 02/26/18 06:10 Lymph # (Auto) 2.0 (1.2-3.4) 02/26/18 06:10 Todd # (Auto) 0.5 (0.1-0.6) 02/26/18 06:10 Eos # (Auto) 0.3 (0.0-0.7) 02/26/18 06:10 Baso # (Auto) 0.03 K/mm3 (0.0-2.0) 02/26/18 06:10 PT 12.5 SECONDS (9.4-12.5) 02/27/18 11:35 INR 1.09 02/27/18 11:35 Sodium 144 mmol/L (132-148) 02/26/18 06:10 Potassium 3.8 mmol/L (3.6-5.0) 02/26/18 06:10 Chloride 106 mmol/L (98-107) 02/26/18 06:10 Carbon Dioxide 29 mmol/L (21-33) 02/26/18 06:10 Anion Gap 13 (10-20) 08/09/18 06:10 BUN 21 mg/dL (7-21) 02/26/18 06:10 Creatinine 0.8 mg/dl (0.8-1.5) 02/26/18 06:10 Est GFR ( Amer) > 60 02/26/18 06:10 Est GFR (Non-Af Amer) > 60 02/26/18 06:10 POC Glucose (mg/dL) 112 mg/dL (65-110) H 02/25/18 16:57 Random Glucose 124 mg/dL (70-110) H 02/26/18 06:10 Calcium 9.1 mg/dL (8.4-10.5) 02/26/18 06:10 Phosphorus 3.4 mg/dL (2.5-4.5) 02/25/18 17:00 Magnesium 2.1 mg/dL (1.7-2.2) 02/25/18 17:00 Total Bilirubin 0.5 mg/dL (0.2-1.3) 02/26/18 06:10 AST 38 U/L (17-59) 02/26/18 06:10 ALT 28 U/L (7-56) 02/26/18 06:10 Alkaline Phosphatase 64 U/L (38-126) 02/26/18 06:10 Ammonia 14 umol/L (9-33) 02/25/18 21:38 Total Protein 7.1 g/dL (5.8-8.3) 02/26/18 06:10 Albumin 4.0 g/dL (3.0-4.8) 02/26/18 06:10 Globulin 3.1 gm/dL 02/26/18 06:10 Albumin/Globulin Ratio 1.3 (1.1-1.8) 02/26/18 06:10 Vitamin B12 > 1000 pg/mL (239-931) H 02/27/18 11:35 Free T4 0.93 ng/dL (0.78-2.19) 02/27/18 11:35 Thyroxine (T4) 6.5 ug/dL (5.5-11.0) 02/25/18 17:00 TSH 3rd Generation 1.46 mIU/mL (0.46-4.68) 02/27/18 11:35 Urine Color Yellow (YELLOW) 02/25/18 18:20 Urine Appearance Clear (CLEAR) 02/25/18 18:20 Urine pH 5.5 (4.7-8.0) 02/25/18 18:20 Ur Specific Chester >= 1.030 (1.005-1.035) 02/25/18 18:20 Urine Protein Trace mg/dL (<30 mg/dL) H 02/25/18 18:20 Urine Glucose (UA) Negative mg/dL (NEGATIVE) 02/25/18 18:20 Urine Ketones 15 mg/dL (NEGATIVE) H 02/25/18 18:20 Urine Blood Negative (NEGATIVE) 02/25/18 18:20 Urine Nitrate Negative (NEGATIVE) 02/25/18 18:20 Urine Bilirubin Small (NEGATIVE) H 02/25/18 18:20 Urine Urobilinogen 0.2 E.U./dL (<1 E.U./dL) 02/25/18 18:20 Ur Leukocyte Esterase Negative Nancy/uL (NEGATIVE) 02/25/18 18:20 Urine RBC Negative /hpf (0-2) 02/25/18 18:20 Urine WBC 1 - 3 /hpf (0-6) 02/25/18 18:20 Ur Epithelial Cells 1 - 3 /hpf (0-5) 02/25/18 18:20 Urine Bacteria Few (NEG) 02/25/18 18:20 Urine Opiates Screen Negative (NEGATIVE) 02/27/18 06:43 Urine Methadone Screen Negative (NEGATIVE) 02/27/18 06:43 Ur Barbiturates Screen Negative (NEGATIVE) 02/27/18 06:43 Ur Phencyclidine Scrn Negative (NEGATIVE) 02/27/18 06:43 Ur Amphetamines Screen Negative (NEGATIVE) 02/27/18 06:43 U Benzodiazepines Scrn Negative (NEGATIVE) 02/27/18 06:43 U Oth Cocaine Metabols Negative (NEGATIVE) 02/27/18 06:43 U Cannabinoids Screen Negative (NEGATIVE) 02/27/18 06:43 Alcohol, Quantitative < 10 mg/dL (0-10) 02/25/18 17:00 RPR Nonreactive (NONREACTIVE) 02/25/18 17:00 HIV 1&2 Ag/Ab, 4th Gen Nonreactive (Nonreactive) 02/26/18 06:00 Attending/Attestation - Attestation I have personally seen and examined this patient.: Yes I have fully participated in the care of the patient.: Yes I have reviewed all pertinent clinical information, including history, physical exam and plan: Yes Notes (Text): 02/28/18 11:52 Attending note; Patient seen and examined with resident. Patient's family by the bedside. Case discussed with director of social media marketing and Rosa etienne. Power of compliance attorney paperwork signed. Patient's sister Bozena granados is the power of compliance attorney. Patient is a 57 year old man with a past medical history significant for dementia and prior significant alcohol abuse who presented after being found by police wandering the streets [facility] ([facility]], admitted for dementia. Patient is currently alert and awake. Oriented to place. knows date of . Recognizes his family members. Otherwise memory is poor. No acute medical issues. Psychiatric evaluation appreciated for occasional agitation. Started on Seroquel. neurology evaluation appreciated. Started on Aricept. Blood culture, urine culture is negative. RPR, HIV is negative. Patient is medically stable. Case discussed with pillowcase turner/director of social media marketing in detail for discharge planning. Discharge home today with family. compressed gas plant worker evaluation appreciated for assisting in outpatient follow up plan. Upon discharge the patient will be referred to [facility] clinic. 02/28/18 11:53
[2018-02-27 14:13] VITALS: BP 129/83; PULSE 69; RESP 20; TEMP 97.8
--- NOTE | 2018-02-27 19:15 | CARD ---
APPROVED REPORT Date of service: 02/27/2018 EKG Measurement Heart [id number] <Conclusion> Normal sinus rhythm Normal ECG
--- NOTE | 2018-02-27 19:25 | CON ---
Copied To: Carol Ding MD Attending MD: Carol Ding MD DATE: 02/27/2018 HISTORY OF PRESENT ILLNESS: Shortly, the patient is a 57-year-old male with not known previous psychiatric history. The patient was admitted on the medical side because the patient was wandering on the street and also rule out dementia and the patient has memory problems and wandering on the streets. Psych consult was called for evaluation of altered mental status and dementia. The patient was seen and examined, discussed with Dr. Meyer. The patient presented to be with psychomotor exacerbation. The patient does not know where he is, does not know what is the date, does not know what brought him to the hospital. The patient takes long pauses and not answering for the questions. The patient denied that he is depressed. The patient also reported that he heard some voices, but it was a while ago. No meaningful conversation possible. Primary language is and this verse writer utilized one-to-one for translation. As per one-to-one collaterals, the patient does not exhibit any aggressive or agitated behavior. The patient ate. The patient comfortably resting in bed. No acute issues. PHYSICAL EXAMINATION: VITAL SIGNS: Stable. Temperature 97.6, pulse is 67, blood pressure 128/85, respirations 18, oxygen saturation is 98%. MEDICATIONS: Reviewed. The patient is on Aricept; folic acid; Ativan 1 mg IV push every 6 hours p.r.n., today was given at 5:45; multivitamins; Protonix; Seroquel was started as a schedule, but we will switch it to as-needed because the patient seems to be demented and Seroquel could give high risk of stroke. The patient also is on thiamine and Geodon 10 mg IM every 8 hours, last time was given at 4:50 yesterday. As per notes from the emergency room, the patient was agitated and required to have Geodon. LABORATORY DATA: Reviewed. Chemistry reviewed. Potassium 3.3, chloride 109. Urinalysis reviewed. Toxicology reviewed negative. RPR is negative. MENTAL STATUS EXAMINATION: The patient appears to be with psychomotor exacerbation. The patient was not willing to participate in interview. The patient does not know where he is, does not know what is the date today. The patient is answering questions. He has no answers. At times, does not give an answer. As per report, the patient has episodes of agitation and requires to have injection of Geodon. Insight and judgment seem to be limited. Impulses are not predictable. IMPRESSION: Most likely, the patient is in delirium stage, also dementia should be ruled out, delirium also should be ruled out. PLAN: Neurology consultation would be recommended. Yesterday, Dr. Neal evaluated the patient. Agreed with Dr. Neal that the patient does not meet the criteria for psych admission. This verse writer would also recommend power of health care attorney to be discussed with the patient, also safe discharge. Medications reviewed and Seroquel will be changed to as-needed. This verse writer will sign off. Should you have any questions, give me a call back. Thank you very much for letting me participate in care of your patient. Carol Ding MD
== END 2018-02-27 15:45 | disposition home or self-care (01) ==
LOC: ED 15:41 → ERH 19:41 → MERGE 19:41 → ERH 20:42 → 5RNO 21:06
PROVIDERS: ADMIT Internal Medicine; ATTEND Internal Medicine
DX: F10.97 Alcohol use, unspecified with alcohol-induced persisting dementia (principal); G30.9 Alzheimer's disease, unspecified; F02.81 Dementia in other diseases classified elsewhere, unspecified severity, with behavioral disturbance; Z91.83 Wandering in diseases classified elsewhere; E87.6 Hypokalemia; Y90.0 Blood alcohol level of less than 20 mg/100 ml; Z87.891 Personal history of nicotine dependence
CPT/HCPCS: 36415; 70450; 71045; 80053; 80320; 80324; 80345; 80346; 80349; 80353; 80358; 80361; 81001; 82140; 82607; 82948; 83735; 83992; 84100; 84436; 84439; 84443; 85025; 85610; 86592; 87040; 87086; 87389; 93005; 97161; 97530; 99285; G0378; G8978; G8979; J2060; J3420; J3486